=== PATIENT | female | born 1960 | race Caucasian/White ===

== ENCOUNTER 2018-06-28 09:46 | Emergency (ER) | payer OTHER ==
[~2018-06-28] VITALS: Ht 165.1 cm; Wt 86.6 kg
[~2018-06-28 09:46] MED LIST: AMOX500 PO; ASPI81CH; ATEN50; Ativan0.5 MG; CYCL10; ENAL20 PO; Hydrochlorothia25 MG PO; Melatonin1 MG; OMEP40CA12; TRIA80TC; VARE1; VENL75ER; ZESTORETIC 20-121 EA
[2018-06-28 10:23] LABS: BASOPHILS PERCENT AUTO 0 % (0-2); EOSINOPHILS PERCENT AUTO 0 % (0-6); Hematocrit 30.8 % (33.0-51.0); Hemoglobin 10.2 g/dL (11.5-16.0); IMMATURE GRAN ABSOLUTE AUTO 0.04 K/mm3 (0.00-0.10); IMMATURE GRAN PERCENT AUTO 1 % (0-1); LYMPHOCYTES ABSOLUTE AUTO 0.92 K/mm3 (0.84-5.20); LYMPHOCYTES PERCENT AUTO 15 % (21-46); MONOCYTES ABSOLUTE AUTO 0.41 K/mm3 (0.16-1.47); MONOCYTES PERCENT AUTO 7 % (4-13); Mean Corpuscular HGB 29.4 pg (26.0-34.0); Mean Corpuscular HGB Conc 33.1 g/dL (31.5-36.5); Mean Corpuscular Volume 89 fL (80-100); Mean Platelet Volume 9.1 fL (9.1-12.4); NEUTROPHILS ABSOLUTE AUTO 4.69 K/mm3 (1.96-9.15); NEUTROPHILS PERCENT AUTO 77 % (41-73); Platelet Count 185 K/mm3 (150-400); RDW Coefficient Variation 17.6 % (11.7-14.2); RDW Standard Deviation 56.6 fL (35.1-46.3); Red Blood Cell Count 3.47 M/mm3 (3.80-5.20); White Blood Cell Count 6.06 K/mm3 (4.00-11.30)
[2018-06-28 10:37] LABS: Anion Gap 9 mmol/L (6-16); Blood Urea Nitrogen 14 mg/dL (8-24); Bun/Creatinine Ratio 15.9 (12.0-20.0); CO2, Blood 25 mmol/L (21-32); Calcium, Blood 8.6 mg/dL (8.5-10.1); Chloride, Blood 103 mmol/L (98-108); Creatinine, Blood 0.88 mg/dL (0.40-1.00); Glomerular Filtration Rate >60 (60-); Glucose, Blood 140 mg/dL (70-99); Potassium, Blood 3.8 mmol/L (3.5-5.5); Sodium, Blood 137 mmol/L (136-145)
[2018-06-28] MEDS ORDERED: CLON.2 (11:17)
[2018-06-28] MEDS ORDERED: LISI20 (11:17)
[2018-06-28] MEDS ORDERED: CLOP75 PO (11:18)
[2018-06-28] MEDS ORDERED: DICL25ER (11:19)
[2018-06-28] MEDS ORDERED: OXYC5 PO (11:20)
[2018-06-28] MEDS ORDERED: Motion Sickness25 M1 PO (11:28)
== END 2018-06-28 12:54 | disposition home or self-care (01) ==
LOC: ER 09:46
PROVIDERS: Emergency Medicine
DX: I67.1 Cerebral aneurysm, nonruptured (principal); F41.9 Anxiety disorder, unspecified; R42 Dizziness and giddiness; Z88.8 Allergy status to other drugs, medicaments and biological substances; Z88.1 Allergy status to other antibiotic agents; Z79.899 Other long term (current) drug therapy; Z79.82 Long term (current) use of aspirin; F17.200 Nicotine dependence, unspecified, uncomplicated
CPT/HCPCS: 70450; 80048; 85025; 93005; 93010; 96361; 96374; 96375; 96376; 99285-25; J2405; J3010; J3360; J7030

== ENCOUNTER 2021-12-24 09:41 | Day surgery (SDC) | payer OTHER ==
[~2021-12-24] VITALS: Ht 162.6 cm; Wt 69.1 kg
[~2021-12-24 09:41] MED LIST changes: -ATEN50; +ATEN50 PO; +ATOR40TA PO; +CLON.2; +CLOP75 PO; +DICL25ER; +GLIP5ER PO; +LISI20; +METF500 PO; +Motion Sickness25 M1 PO; +ONDA4 PO; +OXYC5 PO; +PANT20 PO; +TOPI50 PO; +ZESTORETIC 20-251 EA PO
[2021-12-24] MEDS ORDERED: VENL150ER PO (10:45)
== END 2021-12-24 11:21 | disposition home or self-care (01) ==
LOC: ORSCSDS 09:41
PROVIDERS: Internal Medicine Gastroenterology
PROC: 0DB48ZX Excision of Esophagogastric Junction, Via Natural or Artificial Opening Endoscopic, Diagnostic (ICD-10-PCS; principal; 2021-12-24 11:15)
DX: K74.60 Unspecified cirrhosis of liver (principal); K21.00 Gastro-esophageal reflux disease with esophagitis, without bleeding; C22.0 Liver cell carcinoma; F17.210 Nicotine dependence, cigarettes, uncomplicated; Z79.899 Other long term (current) drug therapy; Z79.82 Long term (current) use of aspirin; K76.6 Portal hypertension; K31.89 Other diseases of stomach and duodenum
CPT/HCPCS: 88305; 88312; J0330; J0461; J2405; J2704; J7120